=== PATIENT | male | born 2000 | race Hispanic/Latino ===

== ENCOUNTER → 2024-02-27 08:56 | Outpatient (REF) | payer OTHER, SELFPAY | LOC: RAD 08:56 | PROVIDERS: ATTENDING PHYSICIAN Physician Assistant | DX: R59.9 Enlarged lymph nodes, unspecified (principal) | CPT/HCPCS: 70492; 71270; 74178; Q9967 ==

== ENCOUNTER 2024-12-01 13:54 | Emergency (ER) | payer OTHER, SELFPAY ==
[2024-12-01 13:58] VITALS: BP 119/78
--- NOTE | 2024-12-01 14:39 | ED.GENMED ---
History of Present Illness
General
Chief Complaint: Musculo-Skeletal Complaint
Source: patient
Exam Limitations: none
Time Seen by Provider: 12/01/24 14:09
Nursing documentation reviewed up to this point in time: agreed with
History of Present Illness
History of Present Illness:
Patient is a 24-year-old male presenting with father for evaluation of right ankle injury. Patient states he was playing basketball last night when jumped up and came down inverting his right ankle. He has been unable to bear weight since.
Describes pain most significant at the lateral aspect of his right ankle. No numbness/tingling in right lower extremity. Patient did not hit his head. No other injury sustained. No other concerns today.
Review of Systems
Review of Systems
Allergies reviewed?: Yes
All Other Systems: ROS reviewed and negative except as documented in HPI and ROS
Phy Exam
Physical Exam
Physical Exam:
Vitals: Patient's vital signs are stable. Afebrile
General: Patient is well appearing, no acute distress
Skin: Warm and dry, no rashes or lesions
Head: Normocephalic, atraumatic
Throat: Protecting airway
Neck: Normal ROM, no cervical spine tenderness
Cardiac: Regular rate
Pulm: No apparent respiratory distress
Abdomen: Nondistended
Extremities: Mild edema of right ankle with tenderness just anterior to right lateral malleolus near insertion of ATFL. No tenderness of right medial malleolus. No bony tenderness of right lower extremity. No tenderness to head of right fibula or
base of right fifth metatarsal. No tenderness of midfoot, calcaneus. Achilles intact. Plantarflexion/dorsiflexion of right ankle intact. Cap refill WNL. Palpable DP pulse of RLE with excellent sensation.
Neuro: Grossly intact
Psychiatric: Normal affect.
Course
Orders/Labs/Results
Orders:
Orders
12/01/24 13:57
Ankle, Right 3 view CR [CR Ankle - Right Min 3 Views *] Urgent
Comment:
Reason For Exam: pain
12/01/24 14:58
Acetaminophen [Tylenol] 650 mg PO NOW STA
12/01/24 15:09
Air Splint Right-Treatment ONCE
Vital Signs
Initial and Last Documented VS:
Initial Vital Signs
Temp Pulse Resp BP Pulse Ox
98.4 F 101 16 119/78 99
12/01/24 13:58 12/01/24 13:58 12/01/24 13:58 12/01/24 13:58 12/01/24 13:58
Last Documented Vital Signs
Temp Pulse Resp BP Pulse Ox
98.4 F 92 18 122/82 99
12/01/24 13:58 12/01/24 15:54 12/01/24 15:54 12/01/24 15:54 12/01/24 15:54
MDM/Problems Addressed
Differential Diagnosis Includes:
Not limited to: Ankle sprain, ankle fracture, Achilles tendon rupture, etc.
MDM/Problems Addressed:
24-year-old male presenting with right ankle injury occurring yesterday evening. No numbness/tingling of RLE. Patient unable to bear weight due to pain. Vital stable. Physical exam as above. X-ray of right ankle obtained and reviewed by me
which shows no evidence of acute fracture or dislocation. Ultimately�suspect likely ankle sprain. Patient did arrive with crutches. Offered walking boot first Aircast. Patient will be discharged with Aircast and crutches as needed for
weightbearing. Discussed rest, ice, compression, elevation. Tylenol for pain. Patient will follow with orthopedics outpatient�referral given. Return precautions discussed. Patient stable for discharge home
Chronic conditions affecting care:
N/A
Acute Exacerbation and/or Progression of Chronic Illness:
N/A
*Radiology
Radiology exam reviewed: preliminary read by ED provider (Ankle x-ray reviewed by me-no evidence of acute fracture) and radiology read reviewed (No fracture or dislocation of right ankle)
*Pulse Oximetry
Patient hypoxic: no
*EKG
Interpreted by ED Provider?: NA
*Oil Developer Interpretation
Rate: Oil Developer- N/A
*Critical Care Note
Total Time (30-74mins, 75-104mins- exclusive of procedures): Not Applicable
ED Attending Note
-
Portions of this chart may have been created with voice recognition software.� Occasional wrong word or��sound alike� substitutions may have occurred due to the inherent limitations of voice recognition software.
Discharge Plan
Departure
Patient Disposition: Home (Routine Discharge)
Date of Disposition: 12/01/24
Time of Disposition: 15:09
Patient with high blood pressure during this ER visit?: No
Condition: Good
Covid-19: Not Applicable
Discharge Problem:
Injury of ankle, right
Instructions: Ankle sprain - ED discharge instructions
Referrals:
Brenda Monroy I., DO [Active] - Follow up in 1 week
Activity Restrictions/Additional Instructions:
Return to the emergency department with any intractable pain of right ankle, numbness/tingling in right ankle or foot, worsening current symptoms, or any other concerns
-Discussed�we did not evidence of acute fracture on your ankle x-ray today. I suspect that you likely sustained a sprain to your right ankle
-You should continue to rest, ice, and elevate your right ankle as often as possible. You should keep the Aircast on. Use crutches as needed to weight-bear over the next few days -week
-Take Tylenol as needed for pain
-F/u with orthopedics for further evaluation/management if symptoms persist/worsen
Monitor your symptoms closely and return to the emergency department with any acute worsening/new symptoms or any other concerns
Interventions
Interventions:
*Risk Screen - Suicide Last Done: 12/01/24 13:59
*General Assessment Last Done: 12/01/24 13:59
*Neglect/Abuse Screening Last Done: 12/01/24 13:59
*ED COVID-19 Vaccine History Last Done: 12/01/24 13:59
*Nursing Disposition Last Done: 12/01/24 15:54
ED-Musculoskeletal Assessment Last Done: 12/01/24 14:16
Discharge Date and Time
Discharge Date/Time: 12/01/24 15:56
Print Language: KOSOVAN
[2024-12-01] MEDS: TYLENOL 650 MG PO (15:18)
[2024-12-01 15:54] VITALS: BP 122/82
== END 2024-12-01 15:56 | disposition home or self-care (01) ==
LOC: EMR 13:54
PROVIDERS: EMERGENCY PHYSICIAN Emergency Medicine; FAMILY PHYSICIAN Nurse Practitioner
DX: S99.911A Unspecified injury of right ankle, initial encounter (principal); X50.1XXA Overexertion from prolonged static or awkward postures, initial encounter; Y93.67 Activity, basketball; Z85.72 Personal history of non-Hodgkin lymphomas
CPT/HCPCS: 99283; 29515; 73610

== ENCOUNTER 2025-03-13 02:23 | Emergency (ER) | payer OTHER, SELFPAY ==
[2025-03-13 02:24] VITALS: BP 138/89
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
--- NOTE | 2025-03-13 02:56 | EDRN ---
curved laceration of the L posterior side of his head. Bleeding controlled.
[2025-03-13] MEDS: ADACEL 0.5 ML IM (03:05)
[2025-03-13 05:44] VITALS: BP 109/53
== END 2025-03-13 05:45 | disposition home or self-care (01) ==
LOC: EMR 02:23
PROVIDERS: EMERGENCY PHYSICIAN Emergency Medicine; FAMILY PHYSICIAN Nurse Practitioner
DX: S01.01XA Laceration without foreign body of scalp, initial encounter (principal); S70.212A Abrasion, left hip, initial encounter; S00.01XA Abrasion of scalp, initial encounter; M25.552 Pain in left hip; M25.532 Pain in left wrist; V48.2XXA Person on outside of car injured in noncollision transport accident in nontraffic accident, initial encounter; Z23 Encounter for immunization; R03.0 Elevated blood-pressure reading, without diagnosis of hypertension; Z85.71 Personal history of Hodgkin lymphoma; Z86.16 Personal history of COVID-19
CPT/HCPCS: 99284; 12031; 90471; 70450; 90715